=== PATIENT | female | born 1985 | race Native Hawaiian/Other Pacific Islander ===

== ENCOUNTER 2017-02-28 21:05 | Emergency (ER) | payer OTHER ==
[2017-02-28] MEDS ORDERED: SODIUM CHLORIDE 0.9% 1,000 ML IV STA ×2 (21:32)
[2017-02-28] MEDS ORDERED: METOCLOPRAMIDE 5 MG/ML 2 ML VIAL IVP STA (21:32)
--- NOTE | 2017-02-28 21:36 | ED ---
General Adult HPI - General Source: patient, family, RN notes reviewed Mode of arrival: ambulatory Limitations: no limitations <Jamie Eubanks - Last Filed: 02/28/17 21:33> <Ishan Kline - Last Filed: 02/28/17 22:46> - General Chief complaint: Nausea/Vomiting/Diarrhea Stated complaint: vomiting - History of Present Illness Initial comments: If complaint history of present illness a 29-year-old female complaint of nausea and vomiting yesterday 6 PM today. She was at work at the time. She was not sick before hand. She thinks may have at bedside food yesterday. No one else is sick around her. No fever. No abdominal pain no diarrhea. (Jamie Eubanks) - Related Data Home Medications Medication Instructions Recorded Confirmed Cyclobenzaprine [Flexeril] 10 mg PO HS PRN 05/11/16 05/11/16 Previous Rx's Medication Instructions Recorded Ondansetron Odt [Zofran Odt] 4 mg PO Q8HR PRN #10 tab 02/28/17 Allergies Allergy/AdvReac Type Severity Reaction Status Date / Time No Known Allergies Allergy Verified 02/28/17 21:13 Review of Systems ROS Other: All systems not noted in ROS Statement are negative. <Jamie Eubakns - Last Filed: 02/28/17 21:33> ROS Other: All systems not noted in ROS Statement are negative. <Ishan Kline - Last Filed: 02/28/17 22:46> ROS Statement: Those systems with pertinent positive or pertinent negative responses have been documented in the HPI. Review of systems. No headache or visual acuity changes no chest pain or shortness of breath no abdominal pain nausea vomiting several times only an hour and a half ago. No back pain or GI/ problems other than that just noted. No neuro deficits no dizziness with movement of her head. All systems were reviewed. Past medical problems significant for otherwise no medical problems. Cancers in the family grandfather had stomach cancer. Patient denies ALLERGIES she smokes 1 cigarette per day since alcohol occasionally. (Jamie Eubanks) Past Medical History Past Medical History: No Reported History History of Any Multi-Drug Resistant Organisms: None Reported Past Surgical History: Section Past Psychological History: ADD/ADHD Smoking Status: Former smoker Past Alcohol Use History: Occasional Past Drug Use History: None Reported <Jamie Eubanks - Last Filed: 02/28/17 21:33> General Exam Limitations: no limitations <Jamie Eubanks - Last Filed: 02/28/17 21:33> <Ishan Kline - Last Filed: 02/28/17 22:46> - General Exam Comments Initial Comments: General: The patient is awake and alert, in no distress, and does not appear acutely ill. Because of nausea and vomiting. No fever. Vital signs temp 97.8 pulse 81 respiratory rate 16 pulse ox 99% room air blood pressure 116/56 Eye: Pupils are equal, round and reactive to light, extra-ocular movements are intact ; there is normal conjunctiva bilaterally. No signs of icterus. Ears, nose, mouth and throat: There are moist mucous membranes and no oral lesions. Neck: The neck is supple, there is no tenderness, no anterior cervical lymphadenopathy.. Cardiovascular: There is a regular rate and rhythm. No murmur, rub or gallop is appreciated. Respiratory: Lungs are clear to auscultation, respirations are non-labored, breath sounds are equal. No wheezes, stridor, rales, or rhonchi. Gastrointestinal: Soft, non-distended, non-tender abdomen without masses or organomegaly noted. There is no rebound or guarding present. No CVA tenderness. Bowel sounds are unremarkable. Back: No complaint of back pain. Musculoskeletal: Normal ROM, no tenderness, There is no pedal edema. There is no calf tenderness or swelling. Pulses equal bilaterally 2+. Neurological: No neuro deficits. When she turns her head quickly left the right she does not become dizzy. Skin: Rashes noted she denies any rashes. (Jamie Eubanks) Medical Decision Making <Jamie Eubanks - Last Filed: 02/28/17 21:33> - Lab Data Result diagrams: 02/28/17 21:24 02/28/17 21:24 <Ishan Kline - Last Filed: 02/28/17 22:46> - Medical Decision Making Patient was signed out from Dr. Eubanks at shift change, awaiting laboratory studies. Patient did receive Reglan and IV hydration. CBC CMP are unremarkable. On reevaluation patient's feeling much better. She will be discharged home with close outpatient follow-up. Return to emergency department with worsening symptoms. Diagnosis: Nausea vomiting (EliudIshan Po) - Lab Data Lab Results 02/28/17 02/28/17 Range/Units 21:24 21:24 WBC 4.7 (3.8-10.6) k/uL RBC 4.22 (3.80-5.40) m/uL Hgb 11.7 (11.4-16.0) gm/dL Hct 35.7 (34.0-46.0) % MCV 84.7 (80.0-100.0) fL MCH 27.8 (25.0-35.0) pg MCHC 32.8 (31.0-37.0) g/dL RDW 14.5 (11.5-15.5) % Plt Count 353 (150-450) k/uL Neutrophils % 70 % Lymphocytes % 23 % Monocytes % 4 % Eosinophils % 1 % Basophils % 0 % Neutrophils # 3.3 (1.3-7.7) k/uL Lymphocytes # 1.1 (1.0-4.8) k/uL Monocytes # 0.2 (0-1.0) k/uL Eosinophils # 0.1 (0-0.7) k/uL Basophils # 0.0 (0-0.2) k/uL Sodium 137 (137-145) mmol/L Potassium 4.3 (3.5-5.1) mmol/L Chloride 107 (98-107) mmol/L Carbon Dioxide 22 (22-30) mmol/L Anion Gap 8 mmol/L BUN 13 (7-17) mg/dL Creatinine 0.60 (0.52-1.04) mg/dL Est GFR (MDRD) Af Amer >60 (>60 ml/min/1.73 sqM) Est GFR (MDRD) Non-Af >60 (>60 ml/min/1.73 sqM) Glucose 94 (74-99) mg/dL Calcium 9.2 (8.4-10.2) mg/dL Total Bilirubin 0.6 (0.2-1.3) mg/dL AST 37 H (14-36) U/L ALT 30 (9-52) U/L Alkaline Phosphatase 51 (38-126) U/L Total Protein 6.9 (6.3-8.2) g/dL Albumin 4.0 (3.5-5.0) g/dL Amylase 39 (30-110) U/L Lipase 88 (23-300) U/L Disposition <Jamie Eubanks - Last Filed: 02/28/17 21:33> Time of Disposition: 22:46 <Ishan Kline - Last Filed: 02/28/17 22:46> Clinical Impression: Nausea & vomiting Disposition: HOME SELF-CARE Condition: Good Instructions: Acute Nausea and Vomiting (ED) Prescriptions: Ondansetron Odt [Zofran Odt] 4 mg PO Q8HR PRN #10 tab PRN Reason: Vomiting Referrals: Bashir Hart MD [Primary Care Provider] - 1-2 days
[2017-02-28 21:43] LABS: Basophils % (A) 0 %; CH 28.1; CHCM 33.4; Eosinophils # (A) 0.1 k/uL (0-0.7); Eosinophils % (A) 1 %; HCT 35.7 % (34.0-46.0); HDW 2.62; HGB 11.7 gm/dL (11.4-16.0); Luc # (Auto) 0.09; Luc % (Auto) 2; Lymphocytes # (A) 1.1 k/uL (1.0-4.8); Lymphocytes % (A) 23 %; MCH 27.8 pg (25.0-35.0); MCHC 32.8 g/dL (31.0-37.0); MCV 84.7 fL (80.0-100.0); Monocytes # (A) 0.2 k/uL (0-1.0); Monocytes % (A) 4 %; Neutrophils # (A) 3.3 k/uL (1.3-7.7); Neutrophils % (A) 70 %; RBC 4.22 m/uL (3.80-5.40); RDW 14.5 % (11.5-15.5); WBC 4.7 k/uL (3.8-10.6); WBC (Perox) 5.04
[2017-02-28 21:58] LABS: ALT 30 U/L (9-52); AST 37 U/L (14-36); Alkaline Phosphatase 51 U/L (38-126); Amylase 39 U/L (30-110); Anion Gap 8 mmol/L; Blood Urea Nitrogen 13 mg/dL (7-17); Calcium 9.2 mg/dL (8.4-10.2); Carbon Dioxide 22 mmol/L (22-30); Chloride 107 mmol/L (98-107); Glucose 94 mg/dL (74-99); Non-African American GFR(MDRD) >60 (>60 ml/min/1.73 sqM); Potassium 4.3 mmol/L (3.5-5.1); Sodium 137 mmol/L (137-145); Total Bilirubin 0.6 mg/dL (0.2-1.3); Total Protein 6.9 g/dL (6.3-8.2)
[2017-02-28 23:03] VITALS: BP 101/66; PULSE 79; RESP 18; TEMP 98
== END 2017-02-28 23:01 | disposition home or self-care (01) ==
LOC: EC 21:05
DX: R11.2 Nausea with vomiting, unspecified (principal); Z87.891 Personal history of nicotine dependence
CPT/HCPCS: 36415; 80053; 82150; 83690; 85025; 99284; 96374; 96361; J2765

== ENCOUNTER 2018-02-10 15:33 | Emergency (ER) | payer OTHER ==
[2018-02-10 15:50] VITALS: RESP 18
[2018-02-10] MEDS ORDERED: LIDOCAINE 1%-EPI 1:100,000 30 ML VIAL SQ STA (17:06)
--- NOTE | 2018-02-10 17:06 | ED ---
General Adult HPI - General Chief complaint: Skin/Abscess/Foreign Body Stated complaint: Insect bite Source: patient Mode of arrival: ambulatory Limitations: no limitations - History of Present Illness Initial comments: Dictation was produced using [employer] dictation software. please excuse any grammatical, word or spelling errors. Chief Complaint: 32-year-old female presents with left gluteal pain History of Present Illness: 32-year-old female presents with left gluteal pain. She states she noted 4 days ago. Patient denies ever having had an abscess before. She noted some mild drainage to it. The ROS documented in this emergency department record has been reviewed and confirmed by me. Those systems with pertinent positive or negative responses have been documented in the HPI. All other systems are other negative and/or noncontributory. - Related Data Home Medications Medication Instructions Recorded Confirmed Cyclobenzaprine [Flexeril] 10 mg PO HS PRN 05/11/16 05/11/16 Previous Rx's Medication Instructions Recorded Ondansetron Odt [Zofran Odt] 4 mg PO Q8HR PRN #10 tab 02/28/17 Cephalexin [Keflex] 500 mg PO Q6HR 5 Days #20 cap 02/10/18 Allergies Allergy/AdvReac Type Severity Reaction Status Date / Time No Known Allergies Allergy Verified 02/10/18 15:50 Review of Systems ROS Statement: Those systems with pertinent positive or pertinent negative responses have been documented in the HPI. ROS Other: All systems not noted in ROS Statement are negative. Past Medical History Past Medical History: No Reported History History of Any Multi-Drug Resistant Organisms: None Reported Past Surgical History: Section Past Psychological History: ADD/ADHD Smoking Status: Former smoker Past Alcohol Use History: Occasional Past Drug Use History: None Reported General Exam - General Exam Comments Initial Comments: PHYSICAL EXAM: General Impression: Alert and oriented x3, not in acute distress HEENT: Normocephalic atraumatic, extra-ocular movements intact, pupils equal and reactive to light bilaterally, mucous membranes moist. Cardiovascular: Heart regular rate and rhythm, S1&S2 audible, no murmurs, rubs or gallops Chest: Lungs clear to auscultation bilaterally, no rhonchi, no wheeze, no rales Abdomen: Bowel sounds present, abdomen soft, non-tender, non-distended, no organomegaly Musculoskeletal: Pulses present and equal in all extremities, no peripheral edema Motor: Power 5/5 bilaterally, no focal deficits noted Neurological: CN II-XII grossly intact, no focal motor or sensory deficits noted Skin: 1 x 1 cm area of induration to the right gluteal area. There is some drainage of clear yellow fluid. Psych: Normal affect and mood Limitations: no limitations Course Vital Signs 02/10/18 15:48 Temperature 99.4 F Pulse Rate 94 Respiratory 18 Rate Blood Pressure 113/59 O2 Sat by Pulse 98 Oximetry Procedures - Incision & Drainage Consent Obtained: verbal consent Time Out Performed?: No Site: back Size (cm): 1 Anesthetic Used: lidocaine 1% I&D Cleaning Method: Chloroprep Sterile Field Used?: Yes Scalpel Used: #11 Needle Aspiration Performed?: No Irrigation Performed?: No I&D Drainage Obtained: Pus Packing: Iodoform Culture Obtained?: No Patient Tolerated Procedure: well Medical Decision Making - Medical Decision Making ED course: 32-year-old female with chief complaint right gluteal lesion. Clinical presentation consistent with subcutaneous abscess. Vital signs upon arrival are within normal limits. Patient is a nondiabetic. Bedside I&D was performed. There was some drainage of purulent fluid. It is warm suspicion of surrounding cellulitis. Bedside ultrasound performed showing improvement of abscess drainage. Patient given prescription for antibiotics for discharge. She is told to follow-up with primary care physician. Disposition Clinical Impression: Abscess Disposition: HOME SELF-CARE Instructions: Abscess Incision and Drainage (ED) Prescriptions: Cephalexin [Keflex] 500 mg PO Q6HR 5 Days #20 cap Is patient prescribed a controlled substance at d/c from ED?: No Referrals: Bashir Hart MD [Primary Care Provider] - 1-2 days Time of Disposition: 17:24
[2018-02-10 17:57] VITALS: BP 109/53; PULSE 90; TEMP 98.5
== END 2018-02-10 17:56 | disposition home or self-care (01) ==
LOC: EC 15:33
DX: L02.31 Cutaneous abscess of buttock (principal); Z87.891 Personal history of nicotine dependence
CPT/HCPCS: 10060; 99282

== ENCOUNTER → 2018-03-18 | Outpatient (CLI) | payer OTHER ==
--- NOTE | 2018-03-18 21:57 | MR ---
EXAMINATION TYPE: MR gan/kerry wo con DATE OF EXAM: 03/18/2018 COMPARISON: None HISTORY: Neck and lower back pain, headaches, BUE/BLE weakness x 4 years CONTRAST: Performed utilizing 0 mL intravenous Gadavist gadolinium contrast. TECHNIQUE: Multiplanar multiecho imaging on a 3.0 Kori magnet is performed through the cervical spin e. FINDINGS: The craniovertebral junction is normal. Vertebral body alignment straightened. There is so me kyphosis in the upper cervical spine. Spinal cord maintains normal signal through its visualized course. There is disc desiccation C2-3 through C6-7. Remaining disc levels have normal hydration. C7-T1: No focal disc herniation or significant disc bulge is evident. No spinal canal stenosis or n eural foraminal stenosis is present. C6-7: No focal disc herniation or significant disc bulge is evident. No spinal canal stenosis or radha ral foraminal stenosis is present. C5-6: No focal disc herniation or significant disc bulge is evident. No spinal canal stenosis or radha ral foraminal stenosis is present. C4-5: No focal disc herniation or significant disc bulge is evident. No spinal canal stenosis or radha ral foraminal stenosis is present. C3-4: No focal disc herniation or significant disc bulge is evident. No spinal canal stenosis or radha ral foraminal stenosis is present. C2-3: No focal disc herniation or significant disc bulge is evident. No spinal canal stenosis or radha ral foraminal stenosis is present. IMPRESSIONS: 1. Slight kyphosis in the upper cervical spine. 2. No spinal canal stenosis or disc herniation or significant foraminal narrowing. EXAMINATION TYPE: MR stewart wo con DATE OF EXAM: 03/18/2018 COMPARISON: None HISTORY: Neck and lower back pain, headaches, BUE/BLE weakness x 4 years CONTRAST: 0 mL intravenous Gadavist. TECHNIQUE: Multiplanar, multisequence images of the lumbar spine were acquired. FINDINGS: Cord terminates at the L1 level. Disc levels have normal hydration and normal height. No disc bulge or focal disc herniation is eviden t. No spinal canal stenosis or neural foraminal stenosis is present. IMPRESSION: 1. Normal MRI lumbar spine.
== END | disposition home or self-care (01) ==
LOC: RADMRIMAIN 19:38
PROVIDERS: ATTEND Psychiatry & Neurology Neurology
DX: M40.202 Unspecified kyphosis, cervical region (principal); M54.5 Low back pain
CPT/HCPCS: 72141; 72148

== ENCOUNTER → 2020-05-14 | Outpatient (CLI) | payer OTHER | END | disposition home or self-care (01) | LOC: LABWHC1 15:58 | PROVIDERS: ATTEND Family Medicine | DX: Z20.828 Contact with and (suspected) exposure to other viral communicable diseases (principal) | CPT/HCPCS: U0003; C9803 ==